=== PATIENT | female | born 1965 ===

== ENCOUNTER 2022-11-17 18:46 | Inpatient (IN) ==
[2022-11-17] MEDS ORDERED: ONDANSETRON 4 MG/2 ML VIAL ONE (18:52)
[2022-11-17] MEDS ORDERED: morphine 4 MG/ML VIAL IV ONE (19:05)
[2022-11-17] MEDS ORDERED: fentaNYL 100 MCG/2 ML VIAL IV ONE ×3 (19:14→23:54)
[2022-11-17 19:15] LABS: POC Calcium, Ionized 1.03 (1.16-1.32); POC Creatinine 0.8 (0.6-1.2); POC Potassium 4.1 (3.3-5.1)
[2022-11-17 19:43] LABS: Basophils # (Auto) 0.05 K/mcL (0.00-0.30); Basophils % (Auto) 0.4 % (0.0-2.0); Eosinophils # (Auto) 0.21 K/mcL (0.00-0.70); Eosinophils % (Auto) 1.6 % (0.0-7.0); Hematocrit 40.8 % (34.1-44.9); Hemoglobin 13.1 g/dL (11.2-15.7); Lymphocytes # (Auto) 4.13 K/mcL (1.50-4.80); Lymphocytes % (Auto) 32.4 % (15.5-49.0); Mean Cell Volume 87.7 fL (80.0-100.0); Mean Corpuscular HGB Conc 32.1 g/dL (31.0-36.0); Mean Platelet Volume 9.7 fL (8.8-12.5); Monocytes # (Auto) 0.98 K/mcL (0.10-0.90); Monocytes % (Auto) 7.7 % (1.0-12.0); Neutrophils % (Auto) 56.6 % (38.0-78.0); Platelet Count 524 K/mcL (140-440); RBC 4.65 M/mcL (3.59-5.38); Red Cell Distribution Width 13.7 % (11.5-14.5); WBC 12.8 K/mcL (4.5-11.0)
[2022-11-17] MEDS ORDERED: ACETAMINOPHEN 325 MG TABLET PO PRN (23:08)
[2022-11-17] MEDS ORDERED: ONDANSETRON 4 MG/2 ML VIAL IV PRN (23:08)
[2022-11-17] MEDS ORDERED: HYDROmorphone 0.5 MG/0.5 ML SYRINGE IV PRN (23:08)
[2022-11-17] MEDS: 0.9 % SODIUM CHLORIDE 10 ML SYRINGE IV SCH (23:09)
[2022-11-17] MEDS: DOCUSATE SODIUM 100 MG CAPSULE PO SCH (23:10)
[2022-11-17] MEDS: SENNOSIDES 1 TABLET PO SCH (23:10)
[2022-11-17] MEDS ORDERED: HYDROcodone/APAP 5/325MG TABLET PO ONE (23:22)
[2022-11-17] MEDS: HYDROcodone/APAP 5/325MG TABLET PO PRN (23:24)
[2022-11-17] MEDS: fentaNYL 100 MCG/2 ML VIAL IV PRN (23:58)
[2022-11-18] MEDS ORDERED: fentaNYL 100 MCG/2 ML VIAL IV ONE ×2 (03:26→16:07)
[2022-11-18] MEDS: fentaNYL 100 MCG/2 ML VIAL IV PRN ×6 (03:29→18:12)
[2022-11-18] MEDS ORDERED: HYDROcodone/APAP 5/325MG TABLET PO ONE (04:08)
[2022-11-18] MEDS: HYDROcodone/APAP 5/325MG TABLET PO PRN (04:09)
[2022-11-18] MEDS: 0.9 % SODIUM CHLORIDE 10 ML SYRINGE IV SCH ×3 (04:09→21:45)
[2022-11-18 07:29] LABS: Basophils # (Auto) 0.05 K/mcL (0.00-0.30); Basophils % (Auto) 0.5 % (0.0-2.0); Eosinophils # (Auto) 0.14 K/mcL (0.00-0.70); Eosinophils % (Auto) 1.4 % (0.0-7.0); Hematocrit 38.8 % (34.1-44.9); Hemoglobin 12.2 g/dL (11.2-15.7); Lymphocytes # (Auto) 2.48 K/mcL (1.50-4.80); Lymphocytes % (Auto) 25.6 % (15.5-49.0); Mean Cell Volume 90.9 fL (80.0-100.0); Mean Corpuscular HGB Conc 31.4 g/dL (31.0-36.0); Mean Platelet Volume 9.6 fL (8.8-12.5); Monocytes # (Auto) 0.98 K/mcL (0.10-0.90); Monocytes % (Auto) 10.1 % (1.0-12.0); Neutrophils % (Auto) 61.6 % (38.0-78.0); Platelet Count 448 K/mcL (140-440); RBC 4.27 M/mcL (3.59-5.38); WBC 9.7 K/mcL (4.5-11.0)
[2022-11-18 07:53] LABS: ALT/SGPT 15 U/L (<40); AST/SGOT 15 U/L (<32); Albumin 3.5 gm/dL (3.2-5.2); Albumin/Globulin Ratio 1.1 (1.0-2.3); Alkaline Phosphatase 95 U/L (39-117); Bilirubin,Direct < 0.2 mg/dL (0-0.3); Bilirubin,Total 0.2 mg/dL (0.1-1.0); Blood Urea Nitrogen 13 mg/dL (6-20); Calcium 8.3 mg/dL (8.6-10.4); Carbon Dioxide 24 mmol/L (22-30); Chloride 103 mmol/L (96-108); Globulin 3.3 gm/dL (2.2-3.7); Glomerular Filtration Rate 81; Glucose 135 mg/dL (70-105); Lactate Dehydrogenase 173 U/L (135-225); Phosphorous 3.7 mg/dL (2.5-4.5); Triglycerides 183 mg/dL (<150); Uric Acid 4.6 mg/dL (2.5-8.0)
[2022-11-18] MEDS: DOCUSATE SODIUM 100 MG CAPSULE PO SCH ×2 (08:36→20:34)
[2022-11-18] MEDS: ACETAMINOPHEN 1,000 MG/100 ML BAG IV SCH ×2 (09:58→17:09)
[2022-11-18] MEDS: HYDROmorphone 0.5 MG/0.5 ML SYRINGE IV PRN ×3 (09:58→13:20)
[2022-11-18] MEDS ORDERED: ACETAMINOPHEN 1,000 MG/100 ML BAG IV PRN (10:00)
[2022-11-18] MEDS ORDERED: ceFAZolin 3 GM in DEXTROSE 5% IN WATER 50 ML IV SCH (12:45)
[2022-11-18] MEDS ORDERED: PROPOFOL 200 MG/20 ML VIAL IV ONE (13:24)
[2022-11-18] MEDS ORDERED: SUGAMMADEX SODIUM 200 MG/2 ML VIAL IV ONE (13:24)
[2022-11-18] MEDS ORDERED: ONDANSETRON 4 MG/2 ML VIAL ONE (13:24)
[2022-11-18] MEDS ORDERED: MAGNESIUM SULFATE 2 GM/50 ML BAG IV ONE (13:24)
[2022-11-18] MEDS ORDERED: LIDOCAINE 2% PF 5 ML VIAL ONE (13:24)
[2022-11-18] MEDS ORDERED: DEXAMETHASONE 10 MG/ML VIAL ONE (13:24)
[2022-11-18] MEDS ORDERED: ROCURONIUM 10 MG/ML ML IV ONE (13:24)
[2022-11-18] MEDS ORDERED: KETAMINE 50 MG/ML Syringe IV ONE (13:30)
[2022-11-18] MEDS ORDERED: ePHEDrine 50 MG/5 ML SYRINGE (ANEST) IV ONE (14:34)
[2022-11-18] MEDS ORDERED: PHENYLephrine 1 MG/10 ML SYRINGE (ANEST) ONE (14:34)
[2022-11-18] MEDS ORDERED: FLEETS ADULT ENEMA PR PRN (15:58)
[2022-11-18] MEDS ORDERED: POLYETHYLENE GLYCOL 3350 17 GM PACKET PO PRN (15:58)
[2022-11-18] MEDS ORDERED: BENZOCAINE/MENTHOL 1 LOZENGE PO PRN (15:58)
[2022-11-18] MEDS ORDERED: BISACODYL 10 MG SUPP.RECT PR PRN (15:58)
[2022-11-18] MEDS ORDERED: MAGNESIUM HYDROXIDE 30 ML ORAL.SUSP PO PRN (15:58)
[2022-11-18] MEDS ORDERED: LACTATED RINGERS 250 ML IV PRN (16:00)
[2022-11-18] MEDS ORDERED: IPRATROPIUM/ALBUTEROL 3 ML AMPUL.NEB NEB PRN (16:00)
[2022-11-18] MEDS ORDERED: MEPERIDINE 25 MG/ML VIAL IV PRN (16:00)
[2022-11-18] MEDS ORDERED: diphenhydrAMINE 50 MG/ML VIAL IV PRN (16:00)
[2022-11-18] MEDS ORDERED: ceFAZolin 2 GM in DEXTROSE 5% IN WATER 50 ML IV SCH (16:00)
[2022-11-18] MEDS ORDERED: ONDANSETRON 4 MG/2 ML VIAL IV PRN (16:00)
[2022-11-18] MEDS ORDERED: ACETAMINOPHEN 1,000 MG/100 ML BAG IV ONE (16:00)
[2022-11-18] MEDS ORDERED: NALOXONE HCL 0.4 MG/ML VIAL IV PRN (16:00)
[2022-11-18] MEDS ORDERED: PROMETHAZINE 25 MG/ML VIAL IV PRN (16:00)
[2022-11-18] MEDS ORDERED: LACTATED RINGERS 1,000 ML IV SCH (16:00)
[2022-11-18] MEDS: HYDROcodone/APAP 10/325MG TABLET PO PRN (19:03)
[2022-11-18] MEDS: SENNOSIDES 1 TABLET PO SCH (20:34)
[2022-11-18] MEDS: ASPIRIN 81 MG TAB.CHEW CHEWED SCH (20:34)
[2022-11-18] MEDS ORDERED: DOCUSATE SODIUM 100 MG CAPSULE PO SCH (21:00)
[2022-11-18] MEDS ORDERED: SENNOSIDES 1 TABLET PO SCH (21:00)
[2022-11-18] MEDS: ceFAZolin 1 GM VIAL IV SCH (21:44)
[2022-11-19] MEDS: ACETAMINOPHEN 1,000 MG/100 ML BAG IV SCH ×2 (01:43→09:04)
[2022-11-19] MEDS: HYDROcodone/APAP 10/325MG TABLET PO PRN ×6 (03:12→22:02)
[2022-11-19 06:23] LABS: Hematocrit 33.8 % (34.1-44.9); Hemoglobin 10.7 g/dL (11.2-15.7)
[2022-11-19] MEDS: 0.9 % SODIUM CHLORIDE 10 ML SYRINGE IV SCH ×3 (06:29→21:47)
[2022-11-19] MEDS: ceFAZolin 1 GM VIAL IV SCH (06:29)
[2022-11-19 06:34] LABS: INR 1.1 (0.9-1.1); Prothrombin Time 14.3 sec (11.9-14.5)
[2022-11-19] MEDS: CYCLOBENZAPRINE 10 MG TABLET PO PRN ×2 (06:57→16:19)
[2022-11-19] MEDS: HYDROmorphone 0.5 MG/0.5 ML SYRINGE IV PRN ×2 (08:52→17:42)
[2022-11-19] MEDS: ASPIRIN 81 MG TAB.CHEW CHEWED SCH ×2 (08:57→20:35)
[2022-11-19] MEDS: DOCUSATE SODIUM 100 MG CAPSULE PO SCH ×2 (08:57→20:35)
[2022-11-19] MEDS: ENOXAPARIN 40 MG/0.4 ML SYRINGE SQ SCH ×2 (09:56→20:36)
[2022-11-19] MEDS: SENNOSIDES 1 TABLET PO SCH (20:35)
[2022-11-20] MEDS: HYDROcodone/APAP 10/325MG TABLET PO PRN ×5 (01:47→23:10)
[2022-11-20] MEDS: 0.9 % SODIUM CHLORIDE 10 ML SYRINGE IV SCH ×3 (05:05→20:24)
[2022-11-20] MEDS: CYCLOBENZAPRINE 10 MG TABLET PO PRN ×2 (07:53→15:51)
[2022-11-20 08:01] LABS: Prothrombin Time 13.4 sec (11.9-14.5)
[2022-11-20] MEDS: ENOXAPARIN 40 MG/0.4 ML SYRINGE SQ SCH ×2 (09:33→20:24)
[2022-11-20] MEDS: diphenhydrAMINE 25 MG CAPSULE PO PRN ×2 (09:33→17:52)
[2022-11-20] MEDS: DOCUSATE SODIUM 100 MG CAPSULE PO SCH ×2 (09:33→20:24)
[2022-11-20] MEDS: ASPIRIN 81 MG TAB.CHEW CHEWED SCH ×2 (09:33→20:24)
[2022-11-20] MEDS: HYDROmorphone 0.5 MG/0.5 ML SYRINGE IV PRN ×3 (12:32→20:30)
[2022-11-20] MEDS: SENNOSIDES 1 TABLET PO SCH (20:24)
[2022-11-21] MEDS: HYDROcodone/APAP 10/325MG TABLET PO PRN ×2 (03:48→08:28)
[2022-11-21] MEDS: 0.9 % SODIUM CHLORIDE 10 ML SYRINGE IV SCH (04:48)
[2022-11-21 07:00] LABS: Hematocrit 31.5 % (34.1-44.9); Hemoglobin 9.8 g/dL (11.2-15.7)
[2022-11-21 07:22] LABS: Prothrombin Time 13.2 sec (11.9-14.5)
[2022-11-21] MEDS: ENOXAPARIN 40 MG/0.4 ML SYRINGE SQ SCH (08:28)
[2022-11-21] MEDS: ASPIRIN 81 MG TAB.CHEW CHEWED SCH (08:28)
[2022-11-21] MEDS: DOCUSATE SODIUM 100 MG CAPSULE PO SCH (08:28)
[2022-11-21] MEDS: HYDROmorphone 0.5 MG/0.5 ML SYRINGE IV PRN ×2 (09:34→12:24)
[2022-11-21] MEDS: diphenhydrAMINE 25 MG CAPSULE PO PRN (09:34)
[2022-11-21] MEDS: CYCLOBENZAPRINE 10 MG TABLET PO PRN (12:24)
[2022-11-22] MEDS ORDERED: ENOXAPARIN 40 MG/0.4 ML SYRINGE SQ SCH (09:00)
== END 2022-11-21 16:05 | DRG 481 ==
LOC: ED 18:46 → MEDSUR 22:47
PROVIDERS: ADMIT Internal Medicine; ATTEND Internal Medicine